=== PATIENT | male | born 1950 | race Asian ===

== ENCOUNTER 2020-12-27 11:28 | Observation (INO) | payer OTHER ==
[2020-12-27] MEDS ORDERED: FAMOTIDINE 10 MG TABLET PO ONE (12:19)
[2020-12-27] MEDS ORDERED: SUCRALFATE 1 GM TABLET (FP) PO ONE (12:36)
[2020-12-27 13:10] LABS: BASO % 0.7 % (0-2.0); EOS % 2.4 % (0-4.5); HEMATOCRIT 45.8 % (35.4-49); HEMOGLOBIN 15.7 GM/dL (11.7-16.9); MCH 31.2 pg (25.7-33.7); MCHC 34.3 g/dl (32.0-35.9); MEAN CELL VOLUME 91.1 fl (80-96); MEAN PLT VOLUME 8.8 fl (7.5-11.1); MONO % 8.4 % (3.8-10.2); NEUT % 52.5 % (42.8-82.8); PLATELET COUNT 157 K/MM3 (134-434); RBC 5.03 M/mm3 (4.00-5.60); RDW 12.7 % (11.9-15.9); WHITE BLOOD COUNT 7.4 K/mm3 (4.0-10.0)
[2020-12-27 13:34] LABS: CHLORIDE 110 mmol/L (98-107); SODIUM 142 mmol/L (136-145)
[2020-12-27 13:36] LABS: CALCIUM 8.7 mg/dL (8.5-10.1)
[2020-12-27 13:37] LABS: ALBUMIN 3.8 g/dl (3.4-5.0); ANION GAP 7 MMOL/L (8-16); BLOOD UREA NITROGEN 11.3 mg/dL (7-18); CO2 25 mmol/L (21-32); GLUCOSE,RANDOM 87 mg/dL (74-106); LIPASE 95 U/L (73-393)
[2020-12-27 13:39] LABS: SGPT/ALT 24 U/L (13-61)
[2020-12-27 13:41] LABS: CREATININE 0.8 mg/dL (0.55-1.3); SGOT/AST 13 U/L (15-37)
[2020-12-27 13:42] LABS: BILIRUBIN,TOTAL 1.1 mg/dL (0.2-1); TOT PROT 7.2 g/dl (6.4-8.2)
[2020-12-27 13:43] LABS: ALK PHOS 54 U/L (45-117)
[2020-12-27] MEDS ORDERED: ASPIRIN 81 MG CHEWABLE TABLETS PO ONE (14:30)
[2020-12-27 17:00] LABS: URINE APPEARANCE CLEAR; URINE BILIRUBIN NEGATIVE (NEGATIVE); URINE COLOR YELLOW; URINE GLUCOSE (UA) NEGATIVE (NEGATIVE); URINE KETONE NEGATIVE (NEGATIVE); URINE LEUK ESTERASE NEGATIVE (NEGATIVE); URINE NITRITE NEGATIVE (NEGATIVE); URINE PROTEIN NEGATIVE (NEGATIVE); URINE UROBILINOGEN 0.2 mg/dL (0.2-1.0)
[2020-12-27] MEDS ORDERED: FAMOTIDINE 10 MG TABLET ONE (17:59)
[2020-12-27] MEDS ORDERED: SUCRALFATE 1 GM TABLET (FP) ONE (18:00)
[2020-12-27] MEDS ORDERED: ATORVASTATIN CA 20 MG TABLET (FP) PO SCH ×2 (22:00→23:20)
[2020-12-27 23:03] VITALS: BMI 28.4
[2020-12-28 07:04] LABS: BASO % 0.9 % (0-2.0); EOS % 4.8 % (0-4.5); HEMATOCRIT 42.3 % (35.4-49); HEMOGLOBIN 14.4 GM/dL (11.7-16.9); LYMPH % 34.1 % (8-40); MCH 31.6 pg (25.7-33.7); MEAN CELL VOLUME 92.7 fl (80-96); MEAN PLT VOLUME 9.6 fl (7.5-11.1); MONO % 9.6 % (3.8-10.2); NEUT % 50.6 % (42.8-82.8); PLATELET COUNT 138 K/MM3 (134-434); RBC 4.56 M/mm3 (4.00-5.60); RDW 12.8 % (11.9-15.9); WHITE BLOOD COUNT 6.8 K/mm3 (4.0-10.0)
[2020-12-28 07:28] LABS: CALCIUM 8.4 mg/dL (8.5-10.1)
[2020-12-28 07:30] LABS: ALBUMIN 3.3 g/dl (3.4-5.0)
[2020-12-28 07:33] LABS: BILIRUBIN,TOTAL 0.8 mg/dL (0.2-1); CREATININE 0.8 mg/dL (0.55-1.3); PHOSPHOROUS 3.2 mg/dL (2.5-4.9); TOT PROT 6.3 g/dl (6.4-8.2)
[2020-12-28] MEDS: TAMSULOSIN HCL 0.4 MG CAP PO SCH (08:06)
[2020-12-28] MEDS: ENOXAPARIN NA (PORCINE) 40 MG/0.4 ML DISP.SYRIN SQ SCH (13:25)
[2020-12-28] MEDS: FAMOTIDINE 20 MG TABLET PO SCH (15:31)
[2020-12-28] MEDS: ASPIRIN 81 MG CHEWABLE TABLETS PO SCH (15:31)
[2020-12-29] MEDS: ASPIRIN 81 MG CHEWABLE TABLETS PO SCH (10:29)
[2020-12-29] MEDS: TAMSULOSIN HCL 0.4 MG CAP PO SCH (10:29)
[2020-12-29] MEDS: FAMOTIDINE 20 MG TABLET PO SCH (10:29)
[2020-12-29] MEDS: ENOXAPARIN NA (PORCINE) 40 MG/0.4 ML DISP.SYRIN SQ SCH (10:29)
[2020-12-29] MEDS ORDERED: REGADENOSON 0.4 MG/5 ML PRE-FILLED SYRINGE IVPUSH ONE ×2 (13:21→13:45)
[2020-12-29 15:49] VITALS: BP 115/71; PULSE 53; TEMP 97.9
== END 2020-12-29 18:36 | disposition home or self-care (01) ==
LOC: JER 11:28 → INTOOBSV 13:12 → JERBED 13:12 → UNDOADMOB 13:12 → J4W 22:00 → JERBED 22:00 → J4W 12-28 08:45
PROC: 3E023GC Introduction of Other Therapeutic Substance into Muscle, Percutaneous Approach (ICD-10-PCS; principal; 2020-12-28)
PROC: 3E033GC Introduction of Other Therapeutic Substance into Peripheral Vein, Percutaneous Approach (ICD-10-PCS; 2020-12-28)
DX: R10.13 Epigastric pain (principal); I45.9 Conduction disorder, unspecified; E66.3 Overweight; Z68.28 Body mass index [BMI] 28.0-28.9, adult; R00.1 Bradycardia, unspecified; N40.0 Benign prostatic hyperplasia without lower urinary tract symptoms; E78.5 Hyperlipidemia, unspecified; Z87.891 Personal history of nicotine dependence; Z29.9 Encounter for prophylactic measures, unspecified
CPT/HCPCS: 36415; 71046-TC-FY; 71275-TC; 74174-TC; 78452-TC; 80053; 80061; 81003; 82550; 83036; 83690; 83721; 83735; 84100; 84443; 84484; 85025; 85379; 93005; 93010; 93017; 93306-TC; 96372; 96374; 99285-25; A9502; C9803; G0378; J2785; Q9967; U0003; U0005

== ENCOUNTER 2021-10-31 16:51 | Emergency (ER) | payer OTHER ==
[2021-10-31 17:19] VITALS: BP 150/71; PULSE 75; TEMP 97.9; BMI 27.3
[2021-10-31 18:49] LABS: EPI CELLS 1 /uL (0-25.1); HYALINE CASTS 0 /uL (0-3.1); PH,URINE 5.5 (5.0-8.0); URINE APPEARANCE CLEAR; URINE BACTERIA 3 /uL (0-1359); URINE BILIRUBIN NEGATIVE (NEGATIVE); URINE COLOR YELLOW; URINE GLUCOSE (UA) TRACE (NEGATIVE); URINE KETONE NEGATIVE (NEGATIVE); URINE LEUK ESTERASE NEGATIVE (NEGATIVE); URINE NITRITE NEGATIVE (NEGATIVE); URINE PROTEIN 1+ (NEGATIVE); URINE RBC 913 /uL (0-23.9); URINE WBC 12 /uL (0-25.8)
== END 2021-10-31 19:06 | disposition home or self-care (01) ==
LOC: JER 16:51
DX: R33.9 Retention of urine, unspecified (principal)
CPT/HCPCS: 81003; 87086; 99283-25

== ENCOUNTER 2021-11-10 13:15 | Inpatient (IN) | payer OTHER ==
[2021-11-10 13:54] VITALS: BMI 21.2
[2021-11-10 16:31] LABS: EPI CELLS 8 /uL (0-25.1); HYALINE CASTS 2 /uL (0-3.1); URINE APPEARANCE CLEAR; URINE BACTERIA 46 /uL (0-1359); URINE BILIRUBIN NEGATIVE (NEGATIVE); URINE COLOR YELLOW; URINE GLUCOSE (UA) NEGATIVE (NEGATIVE); URINE KETONE NEGATIVE (NEGATIVE); URINE LEUK ESTERASE 2+ (NEGATIVE); URINE NITRITE NEGATIVE (NEGATIVE); URINE PROTEIN TRACE (NEGATIVE); URINE RBC 218 /uL (0-23.9); URINE WBC 132 /uL (0-25.8)
[2021-11-10 16:45] LABS: HEMATOCRIT 38.8 % (35.4-49); HEMOGLOBIN 13.7 GM/dL (11.7-16.9); MCH 31.5 pg (25.7-33.7); MCHC 35.5 g/dl (32.0-35.9); MEAN CELL VOLUME 88.8 fl (80-96); MEAN PLT VOLUME 7.4 fl (7.5-11.1); PLATELET COUNT 156 10^3/uL (134-434); RBC 4.36 M/mm3 (4.00-5.60); RDW 12.7 % (11.9-15.9); WHITE BLOOD COUNT 20.4 K/mm3 (4.0-10.0)
[2021-11-10] MEDS ORDERED: PIPERACILLIN/TAZOB 4.5 GM 4.5 GM in DEXTROSE 5%-WATER 100 ML IVPB ONE (17:03)
[2021-11-10 17:13] LABS: BLOOD UREA NITROGEN 14.3 mg/dL (7-18); CALCIUM 7.8 mg/dL (8.5-10.1)
[2021-11-10 17:14] LABS: ALBUMIN 2.9 g/dl (3.4-5.0)
[2021-11-10 17:18] LABS: TOT PROT 6.7 g/dl (6.4-8.2)
[2021-11-10] MEDS ORDERED: PIPERACILLIN/TAZOB 4.5 GM 4.5 GM/100 ML BAG IVPB ONE (17:53)
[2021-11-10 18:48] LABS: ANISOCYTOSIS 1+; MACROCYTOSIS 1+
[2021-11-10] MEDS ORDERED: SODIUM CHLORIDE 1,000 ML IV SCH (21:15)
[2021-11-11] MEDS: PIPERACILLIN/TAZOB 3.375 GM 3.375 GM in DEXTROSE 5%-WATER - 50 ML IVPB SCH ×3 (06:00→18:10)
[2021-11-11] MEDS: SODIUM CHLORIDE 1,000 ML IV SCH ×2 (06:00→20:38)
[2021-11-11] MEDS ORDERED: PIPERACILLIN/TAZOB 3.375 GM 3.375 GM/50 ML BAG IVPB ONE ×3 (06:11→10:16)
[2021-11-11] MEDS ORDERED: ENOXAPARIN NA (PORCINE) 40 MG/0.4 ML DISP.SYRIN SQ ONE ×2 (06:11→10:16)
[2021-11-11] MEDS: ENOXAPARIN NA (PORCINE) 40 MG/0.4 ML DISP.SYRIN SQ SCH ×2 (06:25→10:30)
[2021-11-11 07:59] LABS: BASO % 0.2 % (0-2.0); HEMATOCRIT 36.1 % (35.4-49); HEMOGLOBIN 12.6 GM/dL (11.7-16.9); LYMPH % 10.3 % (8-40); MCH 31.2 pg (25.7-33.7); MCHC 34.9 g/dl (32.0-35.9); MEAN CELL VOLUME 89.5 fl (80-96); MEAN PLT VOLUME 7.7 fl (7.5-11.1); MONO % 8.2 % (3.8-10.2); NEUT % 81.3 % (42.8-82.8); PLATELET COUNT 156 10^3/uL (134-434); RBC 4.03 M/mm3 (4.00-5.60); RDW 12.5 % (11.9-15.9); WHITE BLOOD COUNT 16.7 K/mm3 (4.0-10.0)
[2021-11-11 08:21] LABS: CALCIUM 7.6 mg/dL (8.5-10.1)
[2021-11-11 08:22] LABS: ALBUMIN 2.5 g/dl (3.4-5.0); BLOOD UREA NITROGEN 15.3 mg/dL (7-18); MAGNESIUM 1.9 mg/dL (1.8-2.4)
[2021-11-11 08:25] LABS: CREATININE 1.2 mg/dL (0.55-1.3); PHOSPHOROUS 1.8 mg/dL (2.5-4.9)
[2021-11-11 08:26] LABS: TOT PROT 6.1 g/dl (6.4-8.2)
[2021-11-11 08:27] LABS: BILIRUBIN,TOTAL 2.2 mg/dL (0.2-1)
[2021-11-11] MEDS ORDERED: TAMSULOSIN HCL 0.4 MG CAP PO SCH (10:00)
[2021-11-11] MEDS ORDERED: TAMSULOSIN HCL 0.4 MG CAP ONE (10:15)
[2021-11-11] MEDS ORDERED: ASPIRIN COATED 81 MG TABLET.EC ONE (10:15)
[2021-11-11] MEDS ORDERED: DOCUSATE SODIUM 100 MG CAPSULE (FP) PO ONE (10:15)
[2021-11-11] MEDS: DOCUSATE SODIUM 100 MG CAPSULE (FP) PO SCH ×3 (10:30→21:09)
[2021-11-11] MEDS: ASPIRIN COATED 81 MG TABLET.EC PO SCH (10:30)
[2021-11-11] MEDS ORDERED: PIPERACILLIN/TAZOBACTAM 3.375 GM VIAL IVPB ONE (14:59)
[2021-11-11] MEDS ORDERED: DEXTROSE 5%-WATER - 50 ML IVPB ONE (14:59)
[2021-11-11] MEDS: ATORVASTATIN CA 20 MG TABLET (FP) PO SCH (21:09)
[2021-11-12] MEDS ORDERED: PIPERACILLIN/TAZOBACTAM 3.375 GM VIAL IVPB ONE ×2 (01:19→17:11)
[2021-11-12] MEDS ORDERED: DEXTROSE 5%-WATER - 50 ML IVPB ONE ×3 (01:19→17:12)
[2021-11-12] MEDS ORDERED: MELATONIN 5 MG TABLETS PO ONE (01:30)
[2021-11-12] MEDS ORDERED: PIPERACILLIN/TAZOB 3.375 GM 3.375 GM in DEXTROSE 5%-WATER - 50 ML IVPB SCH (02:00)
[2021-11-12] MEDS ORDERED: PIPERACILLIN/TAZOB 3.375 GM 3.375 GM in DEXTROSE 5%-WATER - 50 ML IVPB ONE (02:00)
[2021-11-12] MEDS: SODIUM CHLORIDE 1,000 ML IV SCH (03:37)
[2021-11-12] MEDS: DOCUSATE SODIUM 100 MG CAPSULE (FP) PO SCH ×4 (06:12→21:36)
[2021-11-12 07:41] LABS: BASO % 0.4 % (0-2.0); EOS % 1.6 % (0-4.5); HEMATOCRIT 35.9 % (35.4-49); HEMOGLOBIN 12.5 GM/dL (11.7-16.9); LYMPH % 15.5 % (8-40); MCH 31.4 pg (25.7-33.7); MCHC 34.9 g/dl (32.0-35.9); MEAN PLT VOLUME 7.9 fl (7.5-11.1); MONO % 7.2 % (3.8-10.2); NEUT % 75.3 % (42.8-82.8); PLATELET COUNT 139 10^3/uL (134-434); RBC 3.99 M/mm3 (4.00-5.60); RDW 12.8 % (11.9-15.9); WHITE BLOOD COUNT 11.7 K/mm3 (4.0-10.0)
[2021-11-12 08:05] LABS: ALBUMIN 2.6 g/dl (3.4-5.0); CALCIUM 7.9 mg/dL (8.5-10.1)
[2021-11-12 08:06] LABS: BLOOD UREA NITROGEN 14.3 mg/dL (7-18)
[2021-11-12 08:08] LABS: CREATININE 0.9 mg/dL (0.55-1.3)
[2021-11-12 08:09] LABS: BILIRUBIN,TOTAL 1.3 mg/dL (0.2-1); TOT PROT 5.8 g/dl (6.4-8.2)
[2021-11-12] MEDS ORDERED: CEFTRIAXONE 1 GM in DEXTROSE 5%-WATER - 50 ML IVPB ONE (09:15)
[2021-11-12] MEDS: ENOXAPARIN NA (PORCINE) 40 MG/0.4 ML DISP.SYRIN SQ SCH (10:00)
[2021-11-12] MEDS: TAMSULOSIN HCL 0.4 MG CAP PO SCH (10:00)
[2021-11-12] MEDS: ASPIRIN COATED 81 MG TABLET.EC PO SCH (10:00)
[2021-11-12] MEDS ORDERED: cefTRIAXone SODIUM 1 GM VIAL ONE (10:28)
[2021-11-12] MEDS: PIPERACILLIN/TAZOB 3.375 GM 3.375 GM in DEXTROSE 5%-WATER - 50 ML IVPB SCH (17:15)
[2021-11-12] MEDS: ATORVASTATIN CA 20 MG TABLET (FP) PO SCH (21:35)
[2021-11-13] MEDS: SODIUM CHLORIDE 1,000 ML IV SCH ×2 (01:00→10:43)
[2021-11-13] MEDS ORDERED: PIPERACILLIN/TAZOBACTAM 3.375 GM VIAL IVPB ONE ×3 (01:01→17:41)
[2021-11-13] MEDS ORDERED: DEXTROSE 5%-WATER - 50 ML IVPB ONE ×3 (01:02→17:41)
[2021-11-13] MEDS: PIPERACILLIN/TAZOB 3.375 GM 3.375 GM in DEXTROSE 5%-WATER - 50 ML IVPB SCH ×3 (01:04→17:58)
[2021-11-13] MEDS: DOCUSATE SODIUM 100 MG CAPSULE (FP) PO SCH ×3 (05:45→21:31)
[2021-11-13 08:28] LABS: ALBUMIN 2.6 g/dl (3.4-5.0); BLOOD UREA NITROGEN 11.1 mg/dL (7-18); CALCIUM 8.3 mg/dL (8.5-10.1)
[2021-11-13 08:31] LABS: CREATININE 0.8 mg/dL (0.55-1.3)
[2021-11-13 08:33] LABS: BILIRUBIN,TOTAL 0.9 mg/dL (0.2-1)
[2021-11-13 09:01] LABS: BASO % 0.7 % (0-2.0); EOS % 4.6 % (0-4.5); HEMATOCRIT 36.8 % (35.4-49); HEMOGLOBIN 12.4 GM/dL (11.7-16.9); LYMPH % 18.5 % (8-40); MCH 30.7 pg (25.7-33.7); MCHC 33.6 g/dl (32.0-35.9); MEAN CELL VOLUME 91.3 fl (80-96); MEAN PLT VOLUME 8.3 fl (7.5-11.1); MONO % 8.9 % (3.8-10.2); NEUT % 67.3 % (42.8-82.8); PLATELET COUNT 168 10^3/uL (134-434); RBC 4.03 M/mm3 (4.00-5.60); RDW 13.1 % (11.9-15.9); WHITE BLOOD COUNT 6.8 K/mm3 (4.0-10.0)
[2021-11-13] MEDS: TAMSULOSIN HCL 0.4 MG CAP PO SCH (09:29)
[2021-11-13] MEDS: ASPIRIN COATED 81 MG TABLET.EC PO SCH (09:29)
[2021-11-13] MEDS: ENOXAPARIN NA (PORCINE) 40 MG/0.4 ML DISP.SYRIN SQ SCH (09:30)
[2021-11-13] MEDS: ATORVASTATIN CA 20 MG TABLET (FP) PO SCH (21:31)
[2021-11-14] MEDS ORDERED: PIPERACILLIN/TAZOBACTAM 3.375 GM VIAL IVPB ONE ×2 (01:43→09:21)
[2021-11-14] MEDS ORDERED: DEXTROSE 5%-WATER - 50 ML IVPB ONE ×2 (01:44→09:22)
[2021-11-14] MEDS: PIPERACILLIN/TAZOB 3.375 GM 3.375 GM in DEXTROSE 5%-WATER - 50 ML IVPB SCH ×2 (02:41→09:41)
[2021-11-14] MEDS: DOCUSATE SODIUM 100 MG CAPSULE (FP) PO SCH ×2 (06:22→13:47)
[2021-11-14] MEDS: SODIUM CHLORIDE 1,000 ML IV SCH (06:22)
[2021-11-14 07:14] LABS: HEMATOCRIT 38.8 % (35.4-49); HEMOGLOBIN 13.1 GM/dL (11.7-16.9); MCH 30.9 pg (25.7-33.7); MCHC 33.8 g/dl (32.0-35.9); MEAN CELL VOLUME 91.7 fl (80-96); MEAN PLT VOLUME 8.1 fl (7.5-11.1); PLATELET COUNT 173 10^3/uL (134-434); RBC 4.23 M/mm3 (4.00-5.60); WHITE BLOOD COUNT 7.3 K/mm3 (4.0-10.0)
[2021-11-14 07:29] LABS: ALBUMIN 2.6 g/dl (3.4-5.0); BLOOD UREA NITROGEN 8.2 mg/dL (7-18); CALCIUM 8.7 mg/dL (8.5-10.1)
[2021-11-14 07:34] LABS: BILIRUBIN,TOTAL 0.9 mg/dL (0.2-1); TOT PROT 6.1 g/dl (6.4-8.2)
[2021-11-14 08:57] VITALS: BP 130/69; PULSE 60; TEMP 98.5
[2021-11-14] MEDS: ASPIRIN COATED 81 MG TABLET.EC PO SCH (09:41)
[2021-11-14] MEDS: ENOXAPARIN NA (PORCINE) 40 MG/0.4 ML DISP.SYRIN SQ SCH (09:41)
[2021-11-14] MEDS: TAMSULOSIN HCL 0.4 MG CAP PO SCH (09:41)
[2021-11-14] MEDS ORDERED: PHENAZOPYRIDINE HCL 100 MG TABLET (FP) PO ONE (11:16)
[2021-11-14] MEDS ORDERED: BETHANECHOL CHLORIDE 25 MG TABLET PO SCH ×2 (14:00)
== END 2021-11-14 15:52 | disposition home or self-care (01) | DRG 721 ==
LOC: JER 13:15 → JERBED 18:31 → J4W 11-11 13:57
PROVIDERS: ADMIT Hospitalist; ATTEND Internal Medicine
DX: T81.40XA Infection following a procedure, unspecified, initial encounter (principal); T81.44XA Sepsis following a procedure, initial encounter; A41.52 Sepsis due to Pseudomonas; N39.0 Urinary tract infection, site not specified; E78.5 Hyperlipidemia, unspecified; D72.829 Elevated white blood cell count, unspecified; N41.1 Chronic prostatitis; N40.1 Benign prostatic hyperplasia with lower urinary tract symptoms; R33.8 Other retention of urine
CPT/HCPCS: 36415; 70450-TC; 71045-TC-FY; 76775-TC; 76856-TC; 80053; 81003; 82962; 83735; 84100; 84484; 85025; 85027; 86850; 86900; 86901; 87040; 87086; 87186; 93005; 93010; 97116-GP; 97161-GP; 99285-25; C9803-CS; U0003; U0005